=== PATIENT | female | born 1990 | race African-American/Black ===

== ENCOUNTER 2019-10-09 19:34 | Emergency (ER) | payer MEDICAID ==
--- NOTE | 2019-10-09 20:05 | EDM.PDOC ---
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 Patient states that she recently had a positive home test. She believes her last menstrual period was approximately 07/22/19. She states when she gets her period she gets a cramping pain in her right lower abdomen and left upper abdomen. She states she had this pain in August and thought she was getting her period but only had some light spotting on September 01. She states that she developed pain again today in the same area. She denies vaginal bleeding or discharge, dysuria, hematuria, fevers, chills, nausea, vomiting, diarrhea. Review of systems: As per history of present illness and below otherwise all systems reviewed and negative. Past medical history: As per history of present illness and as reviewed below otherwise noncontributory. Surgical history: As per history of present illness and as reviewed below otherwise noncontributory. Social history: No reported history of drug or alcohol abuse. Family history: As per history of present illness and as reviewed below otherwise noncontributory. Physical exam: General: Patient sitting comfortably in no acute distress and nontoxic appearing HEENT: Atraumatic, normocephalic, pupils reactive, negative for conjunctival pallor or scleral icterus, mucous membranes moist, throat clear, neck supple, nontender, trachea midline. No meningeal signs. Lungs: Clear to auscultation, breath sounds equal bilaterally, chest nontender. Heart: S1S2, regular, negative for clicks, rubs, or overt murmur. Abdomen: No point tenderness on examination. Soft, nondistended. Negative for masses or hepatosplenomegaly. Negative for costovertebral tenderness. No rigidity, rebound, guarding. Pelvis: Stable nontender. Genitourinary: Deferred. Rectal: Deferred. Extremities: Atraumatic, negative for cords or calf pain. Neurovascular unremarkable. Neuro: Awake, alert, oriented. Cranial nerves II through XII unremarkable. Cerebellum unremarkable. Motor and sensory unremarkable throughout. Exam nonfocal. Notes: Diagnostics: UA, urine hcg, OB US Therapeutics: [] Prescriptions: Impression: [] Plan: Pelvic rest as instructed Follow up with film loader, please call number provided to schedule an appointment Return to ED as needed as discussed Definitive disposition and diagnosis as appropriate pending reevaluation and review of above. Left Upper Abdomen Pain Score (Numeric/FACES): 4 - Related Data Allergies Allergy/AdvReac Type Severity Reaction Status Date / Time No Known Allergies Allergy Verified 10/09/19 19:54 Home Meds: Home Meds . [No Known Home Meds] 10/09/19 [History] Past Medical History - Past Health History Medical/Surgical History: Denies Medical/Surgical History - Infectious Disease History Infectious Disease History: Reports: Chicken Pox Social & Family History - Family History Family Medical History: Noncontributory - Tobacco Use Smoking Status *Q: Never Smoker Second Hand Smoke Exposure: No - Caffeine Use Caffeine Use: Reports: None - Recreational Drug Use Recreational Drug Use: No ED ROS GENERAL - Review of Systems Review Of Systems: Comprehensive ROS is negative, except as noted in HPI. ED EXAM, GI/ABD - Physical Exam Exam: See Below (see dictation) Course - Vital Signs Last Recorded V/S: Last Vital Signs Temp 98.9 F 10/09/19 19:55 Pulse 81 10/09/19 21:35 Resp 16 10/09/19 21:35 BP 122/80 10/09/19 21:35 Pulse Ox 100 10/09/19 21:35 - Orders/Labs/Meds Labs: Laboratory Tests 10/09/19 10/09/19 Range/Units 20:02 20:02 Urine Color YELLOW Urine Appearance CLEAR Urine pH 6.0 (5.0-8.0) Ur Specific [place] >= 1.030 (1.001-1.035) Urine Protein NEGATIVE (NEGATIVE) mg/dL Urine Glucose (UA) NEGATIVE (NEGATIVE) mg/dL Urine Ketones NEGATIVE (NEGATIVE) mg/dL Urine Occult Blood NEGATIVE (NEGATIVE) Urine Nitrite NEGATIVE (NEGATIVE) Urine Bilirubin NEGATIVE (NEGATIVE) Urine Urobilinogen 0.2 (<2.0) EU/dL Ur Leukocyte Esterase NEGATIVE (NEGATIVE) Urine HCG, Qual POSITIVE (NEGATIVE) Departure - Departure Time of Disposition: 21:23 Disposition: Home, Self-Care 01 Condition: Good Clinical Impression: Abdominal pain in - Discharge Information Instructions: Abdominal Pain During , [id number] Referrals: PCP,Not In Area [Primary Care Provider] - Forms: ED Department Discharge Additional Instructions: The following information is given to patients seen in the emergency department who are being discharged to home. This information is to outline your options for follow-up care. We provide all patients seen in our emergency department with a follow-up referral. The need for follow-up, as well as the timing and circumstances, are variable depending upon the specifics of your emergency department visit. If you don't have a primary care physician on staff, we will provide you with a referral. We always advise you to contact your personal physician following an emergency department visit to inform them of the circumstance of the visit and for follow-up with them and/or the need for any referrals to a consulting specialist. The emergency department will also refer you to a specialist when appropriate. This referral assures that you have the opportunity for follow-up care with a specialist. All of these measure are taken in an effort to provide you with optimal care, which includes your follow-up. Under all circumstances we always encourage you to contact your private physician who remains a resource for coordinating your care. When calling for follow-up care, please make the office aware that this follow-up is from your recent emergency room visit. If for any reason you are refused follow-up, please contact the [facility] Emergency Department at and asked to speak to the emergency department charge nurse. [facility] [address] [place] [id number] [facility] [address] [place] [id number] Pelvic rest as instructed Follow up with film loader, please call number provided to schedule an appointment Return to ED as needed as discussed Sepsis Event Note - Evaluation Sepsis Screening Result: No Definite Risk - Focused Exam Date Exam was Performed: 10/13/19 Time Exam was Performed: 20:50
--- NOTE | 2019-10-09 21:18 | US ---
INDICATION: abdominal pain, spotting in August OBSTETRICAL ULTRASOUND Technique: Transvaginal scanning of the pelvis was performed. Findings: The uterus contains a gestational sac. The gestational sac contains a yolk sac and an embryonic pole which exhibits cardiac activity with a heart rate of 158 BPM. The crown-rump length corresponds to an estimated menstrual age of 11 weeks 3 days and an [place] of 04/26/2020. The ovaries appear within normal limits bilaterally and both show Doppler flow. No significant free pelvic fluid is identified. IMPRESSION: Live early intrauterine with estimated menstrual age of 11 weeks 3 days and [place] of 04/26/2020. SUMIT CORDOVA MD [employer] [facility] Dictated by Fei Cordova MD @ 10/09/2019 9:16:27 PM Dictated by: Fei Cordova MD @ 10/09/2019 21:17:18 (Electronically Signed)
== END 2019-10-09 21:38 | disposition home or self-care (01) ==
LOC: MW.ED 19:34
DX: O99.89 Other specified diseases and conditions complicating pregnancy, childbirth and the puerperium (principal); R10.12 Left upper quadrant pain; R10.31 Right lower quadrant pain
CPT/HCPCS: 76801; 76801-26; 81003; 81025; 99282; 99284-25

== ENCOUNTER 2020-04-26 07:12 | Inpatient (IN) | payer MEDICAID ==
[2020-04-26] MEDS ORDERED: Methylergonovine 0.2 MG/1 ML Amp IM PRN (09:13)
[2020-04-26] MEDS ORDERED: Sodium Chloride 0.9% 2.5 ML Syringe FLUSH PRN (09:13)
[2020-04-26] MEDS ORDERED: Nalbuphine 10 MG/1 ML Vial IVPUSH PRN (09:13)
[2020-04-26] MEDS ORDERED: Lidocaine 1% 50 ML MDV INJECT PRN (09:13)
[2020-04-26] MEDS ORDERED: Sodium Chloride 0.9% 10 ML Syringe FLUSH PRN (09:13)
[2020-04-26] MEDS ORDERED: Water For Irrigation,Sterile 1,000 ML Container IRR PRN (09:13)
[2020-04-26] MEDS ORDERED: Carboprost Tromethamine 250 MCG/1 ML Amp IM PRN (09:13)
[2020-04-26] MEDS ORDERED: Sodium Chloride 0.9% 10 ML SDV IV PRN (09:13)
[2020-04-26] MEDS ORDERED: Tranexamic Acid 1,000 MG in Sodium Chloride 0.9% 100 ML IV PRN (09:13)
[2020-04-26] MEDS ORDERED: Misoprostol 200 MCG Tab PO PRN (09:13)
[2020-04-26] MEDS ORDERED: Oxytocin/0.9 % Sodium Chloride 30 UNIT/500 ML BAG IV SCH ×2 (09:15→19:45)
[2020-04-26] MEDS: Lactated Ringers 1,000 ML IV SCH ×4 (09:53→16:37)
[2020-04-26] MEDS: Butorphanol 1 MG/ML SDV IVPUSH PRN ×3 (09:53→15:28)
--- NOTE | 2020-04-26 10:55 | PCM.LDHP ---
L&D History of Present Illness - General Date of Service: 04/26/20 Admit Problem/Dx: Patient Status Order with Admit Dx/Problem 04/26/20 07:35 Patient Status [ADT] Routine 04/26/20 09:13 Patient Status [ADT] Routine Admission Diagnosis/Problem Admission Diagnosis/Problem 04/26/20 10:46 Flakita is a 30 yo at 39.6 weeks gestation ([place] 04/27/2020) that presents today for onset of contractions since 629 with subsequent clear SROM at 829 confirmed with [employer]. O pos, RI, GBS neg, COVID neg. Patient reports 9 intermittent low abdominal and thigh pain with contractions, breathing through, coping well. Patient denies vaginal bleeding, reports positive movement. Patient denies any other problems or concerns at this time. 04/26/20 10:50 04/26/20 10:50 Source of Information: Patient History Limitations: Reports: No Limitations - History of Present Illness Pain Score: 10 - Related Data Allergies/Adverse Reactions: Allergies Allergy/AdvReac Type Severity Reaction Status Date / Time No Known Allergies Allergy Verified 10/09/19 19:54 Home Medications: Home Meds . [No Known Home Meds] 10/09/19 [History] Past Medical History - Past Health History Medical/Surgical History: Denies Medical/Surgical History HEENT History: Reports: None Cardiovascular History: Reports: None Respiratory History: Reports: None Gastrointestinal History: Reports: None Genitourinary History: Reports: None SPARE PERSON History: Reports: , Spontaneous : 2 Para: 0 LMP (Approximate): Musculoskeletal History: Reports: None Neurological History: Reports: Migraines Psychiatric History: Reports: Anxiety, Depression Endocrine/Metabolic History: Reports: None Hematologic History: Reports: None Immunologic History: Reports: None Oncologic (Cancer) History: Reports: None Dermatologic History: Reports: None - Infectious Disease History Infectious Disease History: Reports: Chicken Pox - Past Surgical History HEENT Surgical History: Reports: None GI Surgical History: Reports: None Female Surgical History: Reports: None Social & Family History - Family History Family Medical History: Noncontributory HEENT: Reports: None Cardiac: Reports: High Cholesterol, Hypertension Respiratory: Reports: Asthma GI: Reports: None : Reports: None OBGYN: Reports: Fibroids Musculoskeletal: Reports: None Neurological: Reports: None Psychiatric: Reports: None Endocrine/Metabolic: Reports: Diabetes, Type I Hematologic: Reports: None Immunologic: Reports: None Dermatologic: Reports: None Oncologic: Reports: None - Tobacco Use Smoking Status *Q: Former Smoker Years of Tobacco use: 9 Used Tobacco, but Quit: Yes Month/Year Tobacco Last Used: 03/2019 Second Hand Smoke Exposure: No - Caffeine Use Caffeine Use: Reports: Soda - Recreational Drug Use Recreational Drug Use: No H&P Review of Systems - Review of Systems: Review Of Systems: Comprehensive ROS is negative, except as noted in HPI. General: Reports: No Symptoms HEENT: Reports: No Symptoms Pulmonary: Reports: No Symptoms Cardiovascular: Reports: No Symptoms Gastrointestinal: Reports: No Symptoms Genitourinary: Reports: No Symptoms Musculoskeletal: Reports: No Symptoms Skin: Reports: No Symptoms Psychiatric: Reports: No Symptoms Neurological: Reports: No Symptoms Hematologic/Lymphatic: Reports: No Symptoms Immunologic: Reports: No Symptoms L&D Exam - Exam Exam: See Below - Vital Signs Vital Signs: T 98.2, BP 134/85 (96), HR 84, RR 18 Weight: 180 lb - OB Specific Fundal Height In cm: 39 Contraction Duration (sec): 50-80 Contraction Frequency (min): 2-4 Contraction Intensity: Moderate Movement: Active Heart Tones: Present Heart Tones per Min: 120 Heart Rate (FHR) Variability: Moderate (6-25 bmp) Presentation: Vertex - Cisse Score Cisse Score Cervix Position: Midposition Cisse Score Consistency: Soft Cisse Score Effacement: 51-70% Cisse Score Dilation: 1-2 cm Cisse Score 's Station: -3 Cisse Score Total: 6 - Exam General: Alert, Oriented HEENT: Conjunctiva Clear, EACs Clear, Hearing Intact, Mucosa Moist & [place], PERRLA Neck: Supple, Trachea Midline Lungs: Clear to Auscultation, Normal Respiratory Effort Cardiovascular: Regular Rate, Regular Rhythm GI/Abdominal Exam: Normal Bowel Sounds, Soft, Non-Tender, No Organomegaly, No Distention Rectal Exam: Normal Exam, Normal Rectal Tone Genitourinary: Normal external exam, Normal bimanual exam, Enlarged uterus (Gravid uterus), Vaginal discharge (SROM, clear) Back Exam: Normal Inspection, Full Range of Motion Extremities: Normal Inspection, Normal Range of Motion, Non-Tender, No Pedal Edema, Normal Capillary Refill Skin: Warm, Dry, Intact Neurological: Cranial Nerves Intact, Reflexes Equal Bilateral Psychiatric: Normal Affect, Normal Mood, Other (Drowsy, Stadol administered) - Patient Data Lab Results Last 24 hrs: Laboratory Results - last 24 hr 04/26/20 04/26/20 04/26/20 Range/Units 08:35 09:40 09:40 WBC 7.00 (4.0-11.0) K/uL RBC 3.92 L (4.30-5.90) M/uL Hgb 9.2 L (12.0-16.0) g/dL Hct 30.1 L (36.0-46.0) % MCV 76.8 L (80.0-98.0) fL MCH 23.5 L (27.0-32.0) pg MCHC 30.6 L (31.0-37.0) g/dL RDW Std Deviation 43.8 (28.0-62.0) fl RDW Coeff of Justin 16 H (11.0-15.0) % Plt Count 257 (150-400) K/uL MPV 9.20 (7.40-12.00) fL Nucleated RBC % 0.0 /100WBC Nucleated RBCs # 0 K/uL Membrane Rupture POSITIVE COVID-19 (ALEXANDER) (NEGATIVE) Blood Type O POSITIVE Antibody Screen NEGATIVE 04/26/20 Range/Units 09:45 WBC (4.0-11.0) K/uL RBC (4.30-5.90) M/uL Hgb (12.0-16.0) g/dL Hct (36.0-46.0) % MCV (80.0-98.0) fL MCH (27.0-32.0) pg MCHC (31.0-37.0) g/dL RDW Std Deviation (28.0-62.0) fl RDW Coeff of Justin (11.0-15.0) % Plt Count (150-400) K/uL MPV (7.40-12.00) fL Nucleated RBC % /100WBC Nucleated RBCs # K/uL Membrane Rupture COVID-19 (ALEXANDER) NEGATIVE (NEGATIVE) Blood Type Antibody Screen Result Diagrams: 04/26/20 09:40 - Problem List (1) with 39 completed weeks gestation SNOMED Code(s): 57330816 ICD Code: Z3A.39 - 39 WEEKS GESTATION OF Status: Acute Priority: High Current Visit: Yes (2) Uterine contractions SNOMED Code(s): 787861565 ICD Code: [id number] - Status: Acute Priority: High Current Visit: Yes Problem List Initiated/Reviewed/Updated: Yes Orders Last 24hrs: Active Orders 24 hr Category Date Time Status Patient Status [ADT] Routine ADT 04/26/20 09:13 Active Heart Tones [RC] CONTINUOUS Care 04/26/20 09:13 Active Non Stress Test [RC] PER UNIT ROUTINE Care 04/26/20 07:35 Active May Shower [RC] ASDIRECTED Care 04/26/20 09:13 Active Notify Provider [RC] PRN Care 04/26/20 09:13 Active Up ad Griselda [RC] ASDIRECTED Care 04/26/20 07:35 Active Up ad Griselda [RC] ASDIRECTED Care 04/26/20 09:13 Active Vaginal Exam [RC] Click to Edit Care 04/26/20 07:35 Active Vital Signs [RC] PER UNIT ROUTINE Care 04/26/20 07:35 Active Vital Signs [RC] PER UNIT ROUTINE Care 04/26/20 09:13 Active Regular Diet [DIET] Diet 04/26/20 Breakfast Active RPR (SYPHILIS SERO) W/ RFLX [REF] Routine Lab 04/26/20 09:40 Received Butorphanol [Stadol] Med 04/26/20 09:13 Active 1 mg IVPUSH Q1H PRN Carboprost Tromethamine [Hemabate DS] Med 04/26/20 09:13 Active 250 mcg IM ASDIRECTED PRN Lactated Ringers [Ringers, Lactated] 1,000 ml Med 04/26/20 09:15 Active IV ASDIRECTED Lidocaine 1% [Xylocaine 1%] Med 04/26/20 09:13 Active 50 ml INJECT ONETIME PRN Methylergonovine [Methergine] Med 04/26/20 09:13 Active 0.2 mg IM ASDIRECTED PRN Nalbuphine [Nubain] Med 04/26/20 09:13 Active 10 mg IVPUSH Q1H PRN Oxytocin/0.9 % Sodium Chloride [Oxytocin 30 Unit/500 ML Med 04/26/20 09:15 Active -NS] 30 unit in 500 ml IV TITRATE Sodium Chloride 0.9% [Normal Saline] Med 04/26/20 09:13 Active 10 ml IV ASDIRECTED PRN Sodium Chloride 0.9% [Saline Flush] Med 04/26/20 09:13 Active 10 ml FLUSH ASDIRECTED PRN Sodium Chloride 0.9% [Saline Flush] Med 04/26/20 09:13 Active 2.5 ml FLUSH ASDIRECTED PRN Tranexamic Acid [Cyklokapron] 1,000 mg Med 04/26/20 09:13 Active Sodium Chloride 0.9% [Normal Saline] 100 ml IV ONETIME Water For Irrigation,Sterile [Sterile Water for Med 04/26/20 09:13 Active Irrigation] 1,000 ml IRR ASDIRECTED PRN miSOPROStoL [Cytotec] Med 04/26/20 09:13 Active 200 mcg PO ONETIME PRN Scalp Electrode [WOMSER] Per Unit Routine Oth 04/26/20 09:13 Ordered Peripheral IV Insertion Adult [OM.PC] Routine Oth 04/26/20 09:13 Ordered Resuscitation Status Routine Resus Stat 04/26/20 07:35 Ordered Medication Orders Butorphanol Tartrate (Stadol) 1 mg IVPUSH Q1H PRN PRN Reason: Pain Last Admin: 04/26/20 09:53 Dose: 1 mg Documented by: NADYA Carboprost Tromethamine (Hemabate Ds) 250 mcg IM ASDIRECTED PRN PRN Reason: Post Hemorrhage Lactated Ringer's (Ringers, Lactated) 1,000 mls @ 150 mls/hr IV ASDIRECTED MICHELLE Last Admin: 04/26/20 09:53 Dose: 150 mls/hr Documented by: NADYA Oxytocin/Sodium Chloride (Oxytocin 30 Unit/500 Ml-Ns) 30 unit in 500 mls @ 500 mls/hr IV TITRATE MICHELLE Tranexamic Acid 1,000 mg/ (Sodium Chloride) 110 mls @ 660 mls/hr IV ONETIME PRN PRN Reason: Bleeding Lidocaine HCl (Xylocaine 1%) 50 ml INJECT ONETIME PRN PRN Reason: Laceration repair Methylergonovine Maleate (Methergine) 0.2 mg IM ASDIRECTED PRN PRN Reason: Post Hemorrhage Misoprostol (Cytotec) 200 mcg PO ONETIME PRN PRN Reason: Post Hemorrhage Nalbuphine HCl (Nubain) 10 mg IVPUSH Q1H PRN PRN Reason: Pain (severe 7-10) Sodium Chloride (Saline Flush) 10 ml FLUSH ASDIRECTED PRN PRN Reason: Keep Vein Open Sodium Chloride (Saline Flush) 2.5 ml FLUSH ASDIRECTED PRN PRN Reason: Keep Vein Open Sodium Chloride (Normal Saline) 10 ml IV ASDIRECTED PRN PRN Reason: IV Use Sterile Water (Sterile Water For Irrigation) 1,000 ml IRR ASDIRECTED PRN PRN Reason: delivery Assessment/Plan Comment:: Admit to labor and delivery under observation at 39+6 weeks gestation in anticipation for of term, viable . Hemodynamically stable, afebrile. COVID negative. GBS negative. See new orders. May have epidural for comfort between 5-[address] Caruso notified and agreeable with POC.
[2020-04-26] MEDS ORDERED: Ropivacaine HCl/PF 100 ML ONE (15:21)
[2020-04-26] MEDS ORDERED: fentaNYL 100 MCG/2 ML SDV ONE ×2 (15:21→23:46)
--- NOTE | 2020-04-26 15:45 | PCM.PREANE ---
Preanesthetic Assessment - Anesthesia/Transfusion/Family Hx Anesthesia History: No Prior Anesthesia Family History of Anesthesia Reaction: No Transfusion History: No Prior Transfusion(s) - Physical Assessment NPO Status Date: 04/26/20 NPO Status Time: 09:00 Height: 1.63 m Weight: 81.647 kg ASA Class: 2 - Lab Values: Laboratory Last Values WBC 7.00 K/uL (4.0-11.0) 04/26/20 09:40 RBC 3.92 M/uL (4.30-5.90) L 04/26/20 09:40 Hgb 9.2 g/dL (12.0-16.0) L 04/26/20 09:40 Hct 30.1 % (36.0-46.0) L 04/26/20 09:40 MCV 76.8 fL (80.0-98.0) L 04/26/20 09:40 MCH 23.5 pg (27.0-32.0) L 04/26/20 09:40 MCHC 30.6 g/dL (31.0-37.0) L 04/26/20 09:40 RDW Std Deviation 43.8 fl (28.0-62.0) 04/26/20 09:40 RDW Coeff of Justin 16 % (11.0-15.0) H 04/26/20 09:40 Plt Count 257 K/uL (150-400) 04/26/20 09:40 MPV 9.20 fL (7.40-12.00) 04/26/20 09:40 Nucleated RBC % 0.0 /100WBC 04/26/20 09:40 Nucleated RBCs # 0 K/uL 04/26/20 09:40 Membrane Rupture POSITIVE 04/26/20 08:35 COVID-19 (ALEXANDER) NEGATIVE (NEGATIVE) 04/26/20 09:45 Blood Type O POSITIVE 04/26/20 09:40 Antibody Screen NEGATIVE 04/26/20 09:40 - Allergies Allergies/Adverse Reactions: Allergies Allergy/AdvReac Type Severity Reaction Status Date / Time No Known Allergies Allergy Verified 10/09/19 19:54 - Acknowledgements Anesthesia Type Planned: Epidural Pt an Appropriate Candidate for the Planned Anesthesia: Yes Alternatives and Risks of Anesthesia Discussed w Pt/Guardian: Yes Pt/Guardian Understands and Agrees with Anesthesia Plan: Yes PreAnesthesia Questionnaire - Past Health History Medical/Surgical History: Denies Medical/Surgical History HEENT History: Reports: None Cardiovascular History: Reports: None Respiratory History: Reports: None Gastrointestinal History: Reports: None Genitourinary History: Reports: None 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: , 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 Musculoskeletal History: Reports: None Neurological History: Reports: Migraines Psychiatric History: Reports: Anxiety, Depression Endocrine/Metabolic History: Reports: None Hematologic History: Reports: None Immunologic History: Reports: None Oncologic (Cancer) History: Reports: None Dermatologic History: Reports: None - Infectious Disease History Infectious Disease History: Reports: Chicken Pox - Past Surgical History HEENT Surgical History: Reports: None GI Surgical History: Reports: None Female Surgical History: Reports: None - SUBSTANCE USE Smoking Status *Q: Former Smoker Tobacco Use Within Last Twelve Months: Cigarettes Second Hand Smoke Exposure: No Recreational Drug Use History: No - HOME MEDS Home Medications: Home Meds . [No Known Home Meds] 10/09/19 [History] - CURRENT (IN HOUSE) MEDS Current Meds: Current Medications Butorphanol Tartrate (Stadol) 1 mg IVPUSH Q1H PRN PRN Reason: Pain Last Admin: 04/26/20 11:20 Dose: 1 mg Documented by: Carboprost Tromethamine (Hemabate Ds) 250 mcg IM ASDIRECTED PRN PRN Reason: Post Hemorrhage Lactated Ringer's (Ringers, Lactated) 1,000 mls @ 150 mls/hr IV ASDIRECTED MICHELLE Last Admin: 04/26/20 09:53 Dose: 150 mls/hr Documented by: Oxytocin/Sodium Chloride (Oxytocin 30 Unit/500 Ml-Ns) 30 unit in 500 mls @ 500 mls/hr IV TITRATE MICHELLE Tranexamic Acid 1,000 mg/ (Sodium Chloride) 110 mls @ 660 mls/hr IV ONETIME PRN PRN Reason: Bleeding Lidocaine HCl (Xylocaine 1%) 50 ml INJECT ONETIME PRN PRN Reason: Laceration repair Methylergonovine Maleate (Methergine) 0.2 mg IM ASDIRECTED PRN PRN Reason: Post Hemorrhage Misoprostol (Cytotec) 200 mcg PO ONETIME PRN PRN Reason: Post Hemorrhage Nalbuphine HCl (Nubain) 10 mg IVPUSH Q1H PRN PRN Reason: Pain (severe 7-10) Sodium Chloride (Saline Flush) 10 ml FLUSH ASDIRECTED PRN PRN Reason: Keep Vein Open Sodium Chloride (Saline Flush) 2.5 ml FLUSH ASDIRECTED PRN PRN Reason: Keep Vein Open Sodium Chloride (Normal Saline) 10 ml IV ASDIRECTED PRN PRN Reason: IV Use Sterile Water (Sterile Water For Irrigation) 1,000 ml IRR ASDIRECTED PRN PRN Reason: delivery Discontinued Medications Fentanyl (Sublimaze) Confirm Administered Dose 100 mcg .ROUTE .STK-MED ONE Stop: 04/26/20 15:22 Ropivacaine (Naropin 0.2%) Confirm Administered Dose 100 mls @ as directed .ROUTE .STK-MED ONE Stop: 04/26/20 15:22
--- NOTE | 2020-04-26 15:49 | PCM.PRNOTE ---
- Free Text/Narrative Note: Anes Note Patient requests epidural for L&D. Sitting position, Level L3-L4 midline approach. Sterile technique. Chloraprep scrub to lumbar area. Sterile fenestrated drape applied. Epidural space easily achieved single attempt using WILDER technique. Wilder at 4 cm. Cath threaded 5 cm with ease. Cath secured a t skin at 10 cm using sterile clear adhesive dressing. Test 1540 3 cc 1.5% lido with epi negative. 1545 Load 10 cc 0.2% ropiv with 1 mcg cc fentanyl in slow divided doses. 1550 Pump started with 90 cc same solution. Rate is 8 cc hr with 6 cc q 20 min prn bolus. Richi well. Time with patient [id number] Jb Yanes [employer]
[2020-04-27] MEDS ORDERED: Witch Hazel Medicated Pads 40/Jar TOP PRN (00:20)
[2020-04-27] MEDS ORDERED: Ibuprofen 400 MG Tab PO PRN (00:20)
[2020-04-27] MEDS ORDERED: oxyCODONE 5 MG Tab PO PRN (00:20)
[2020-04-27] MEDS ORDERED: Acetaminophen 500 MG Tab PO PRN (00:20)
[2020-04-27] MEDS ORDERED: Lanolin 100% Cream 7 GM Tube TOP PRN (00:20)
[2020-04-27] MEDS ORDERED: Benzocaine/Menthol 20%-0.5% Spray 78 GM Cannister TOP PRN (00:20)
[2020-04-27] MEDS ORDERED: Bisacodyl 10 MG Supp RECTAL PRN (00:20)
[2020-04-27] MEDS: Ibuprofen 800 MG Tab PO PRN ×3 (00:59→16:55)
--- NOTE | 2020-04-27 07:09 | PCM48HPAN ---
Post Anesthesia Note - EVALUATION WITHIN 48HRS OF ANESTHETIC Vital Signs in Normal Range: Yes Patient Participated in Evaluation: Yes Respiratory Function Stable: Yes Airway Patent: Yes Cardiovascular Function Stable: Yes Hydration Status Stable: Yes Pain Control Satisfactory: Yes Nausea and Vomiting Control Satisfactory: Yes Mental Status Recovered: Yes Vital Signs: Last Vital Signs Temp 36.3 C 04/27/20 06:34 Pulse 82 04/27/20 06:34 Resp 17 04/27/20 06:34 BP 108/58 L 04/27/20 06:34 Pulse Ox 96 04/27/20 06:34
[2020-04-27] MEDS: Ferrous Sulfate 325 MG Tab PO SCH ×2 (08:58→16:55)
[2020-04-27] MEDS ORDERED: Iron Polysaccharides Complex 150 MG Cap PO SCH (09:00)
--- NOTE | 2020-04-27 11:10 | PCM.PNPP ---
- General Info Date of Service: 04/27/20 Functional Status: Reports: Pain Controlled - Review of Systems General: Reports: No Symptoms HEENT: Reports: No Symptoms Pulmonary: Reports: No Symptoms Cardiovascular: Reports: No Symptoms Gastrointestinal: Reports: No Symptoms Genitourinary: Reports: No Symptoms Musculoskeletal: Reports: No Symptoms Skin: Reports: No Symptoms Neurological: Reports: No Symptoms Psychiatric: Reports: No Symptoms - General Info Date of Service: 04/27/20 - Patient Data Vital Signs - Most Recent: Last Vital Signs Temp 36.4 C 04/27/20 07:34 Pulse 79 04/27/20 07:34 Resp 16 04/27/20 07:34 BP 117/59 L 04/27/20 07:34 Pulse Ox 98 04/27/20 07:34 Weight - Most Recent: 81.647 kg Med Orders - Current: Current Medications Acetaminophen (Tylenol Extra Strength) 500 mg PO Q4H PRN PRN Reason: Pain Acetaminophen (Tylenol Extra Strength) 1,000 mg PO Q4H PRN PRN Reason: Pain Benzocaine/Menthol (Dermoplast Pain Relief 20%-0.5% [place]) 78 gm TOP ASDIRECTED PRN PRN Reason: Perineal Comfort Measure Bisacodyl (Dulcolax) 10 mg RECTAL ONETIME PRN PRN Reason: Constipation Docusate Sodium (Colace) 100 mg PO BID PRN PRN Reason: Constipation Emollient Ointment (Lansinoh Hpa) 0 gm TOP ASDIRECTED PRN PRN Reason: Sore Nipples Ferrous Sulfate (Ferrous Sulfate) 325 mg PO BIDMEALS [facility] Last Admin: 04/27/20 08:58 Dose: 325 mg Documented by: Ibuprofen (Motrin) 400 mg PO Q4H PRN PRN Reason: Pain Ibuprofen (Motrin) 800 mg PO Q6H PRN PRN Reason: Pain Last Admin: 04/27/20 08:58 Dose: 800 mg Documented by: Oxycodone HCl (Oxycodone) 5 mg PO Q2H PRN PRN Reason: Pain Witch Eleni (Tucks) 1 pad TOP ASDIRECTED PRN PRN Reason: comfort care Discontinued Medications Butorphanol Tartrate (Stadol) 1 mg IVPUSH Q1H PRN PRN Reason: Pain Stop: 04/27/20 00:18 Last Admin: 04/26/20 15:28 Dose: 1 mg Documented by: Carboprost Tromethamine (Hemabate Ds) 250 mcg IM ASDIRECTED PRN PRN Reason: Post Hemorrhage Fentanyl (Sublimaze) Confirm Administered Dose 100 mcg .ROUTE .[facility] ONE Stop: 04/26/20 15:22 Last Admin: 04/27/20 08:10 Dose: Not Given Documented by: Fentanyl (Sublimaze) Confirm Administered Dose 100 mcg .ROUTE .[email or web address] ONE Stop: 04/26/20 23:47 Last Admin: 04/27/20 08:11 Dose: Not Given Documented by: Lactated Ringer's (Ringers, Lactated) 1,000 mls @ 150 mls/hr IV ASDIRECTED MICHELLE Last Admin: 04/26/20 16:37 Dose: 999 mls/hr Documented by: Oxytocin/Sodium Chloride (Oxytocin 30 Unit/500 Ml-Ns) 30 unit in 500 mls @ 500 mls/hr IV TITRATE MICHELLE Tranexamic Acid 1,000 mg/ (Sodium Chloride) 110 mls @ 660 mls/hr IV ONETIME PRN PRN Reason: Bleeding Ropivacaine (Naropin 0.2%) Confirm Administered Dose 100 mls @ as directed .ROUTE .[email or web address] ONE Stop: 04/26/20 15:22 Last Admin: 04/27/20 08:12 Dose: Not Given Documented by: Oxytocin/Sodium Chloride (Oxytocin 30 Unit/500 Ml-Ns) 30 unit in 500 mls @ 2 mls/hr IV TITRATE MICHELLE; Protocol Last Infusion: 04/27/20 00:00 Dose: 999 munits/min, 999 mls/hr Documented by: Lidocaine HCl (Xylocaine 1%) 50 ml INJECT ONETIME PRN PRN Reason: Laceration repair Methylergonovine Maleate (Methergine) 0.2 mg IM ASDIRECTED PRN PRN Reason: Post Hemorrhage Misoprostol (Cytotec) 200 mcg PO ONETIME PRN PRN Reason: Post Hemorrhage Nalbuphine HCl (Nubain) 10 mg IVPUSH Q1H PRN PRN Reason: Pain (severe 7-10) Polysaccharide Iron Complex (Ferrex 150) 150 mg PO BID MICHELLE Sodium Chloride (Saline Flush) 10 ml FLUSH ASDIRECTED PRN PRN Reason: Keep Vein Open Sodium Chloride (Saline Flush) 2.5 ml FLUSH ASDIRECTED PRN PRN Reason: Keep Vein Open Sodium Chloride (Normal Saline) 10 ml IV ASDIRECTED PRN PRN Reason: IV Use Sterile Water (Sterile Water For Irrigation) 1,000 ml IRR ASDIRECTED PRN PRN Reason: delivery - Infant Interaction Infant Disposition, : [place] in Room with Family Interaction: Holding Infant Feeding: Attempted ; Nursed Fair/Poor Support Person: Significant Other - Recovery Exam Fundal Tone: Firm Fundal Level: At Umbilicus Fundal Placement: Right Lochia Amount: Scant Lochia Color: Brownish Perineum Description: Intact, Minimal Bruising/Swelling Bladder Status: Voiding - Exam General: Alert, Oriented HEENT: Pupils Equal Neck: Supple Lungs: Clear to Auscultation, Normal Respiratory Effort Cardiovascular: Regular Rate, Regular Rhythm GI/Abdominal Exam: Normal Bowel Sounds, Soft, Non-Tender, No Organomegaly, No Distention, No Abnormal Bruit, No Mass, Pelvis Stable Extremities: Normal Inspection, Normal Range of Motion, Non-Tender, No Pedal Edema, Normal Capillary Refill Skin: Warm, Dry, Intact Wound/Incisions: Healing Well Neurological: No New Focal Deficit Psy/Mental Status: Alert, Normal Affect, Normal Mood - Problem List Review Problem List Initiated/Reviewed/Updated: Yes - My Orders Last 24 Hours: My Active Orders 04/27/20 09:00 Ferrous Sulfate 325 mg PO BIDMEALS - Assessment Assessment:: Vaginal delivery doing well she would be discharged home in a.m. - Plan Plan:: Admit to labor and delivery under observation at 39+6 weeks gestation in anticipation for of term, viable . Hemodynamically stable, afebrile. COVID negative. GBS negative. See new orders. May have epidural for comfort between 5-[address] Caruso notified and agreeable with POC.
[2020-04-27] MEDS: Acetaminophen 500 MG Tab PO PRN ×2 (11:55→20:20)
--- NOTE | 2020-04-27 13:02 | OR ---
SURGEON: Sam Caruso MD DATE OF PROCEDURE: 04/27/2020 Ms. Boggs is a 30-year-old patient, primigravida. She is followed in our clinic primarily by our nurse midwifery service. Her GBS status was negative. Her diabetes screen was normal. She had no issue. She is admitted in active labor. At the time of admission, she was 4 cm and with bulging bag of water. She later on progressed to 6 cm. She had an artificial rupture of the membrane with clear fluid and she had epidural anesthesia for labor analgesia. The patient required Pitocin augmentation, and later on, she progressed to complete complete, and she commenced pushing. She pushed to +1 to +2. She started having deep variable deceleration with tachycardia. I was consulted. At the time I arrived to Labor and Delivery, vital signs were stable. heart rate was category 1. However, the patient does have what looks like cord compression. Because of maternal exhaustion and after consulting with the patient, we elected not to do vacuum extraction. The patient was in ROT and after removing the Adam catheter, the Kiwi vacuum extraction was applied and with the patient pushing and slowly rotating the head to an OA position, I was able to accomplish delivering of the head. The rest of the delivery was accomplished by Anna Mae. The placenta delivered spontaneous, complete, and intact. There was no perineal, labial, or vaginal laceration, and there was no need for episiotomy. Estimated blood loss is 350 to 400 mL. heart rate was category 1 through the entire process of labor and delivery. JAVIER / DIPTI /[id number]
[2020-04-27] MEDS: Docusate Sodium 100 MG Cap PO PRN (20:20)
[2020-04-28] MEDS: Docusate Sodium 100 MG Cap PO PRN (08:34)
[2020-04-28] MEDS: Ferrous Sulfate 325 MG Tab PO SCH (08:34)
[2020-04-28] MEDS: Ibuprofen 800 MG Tab PO PRN (08:45)
--- NOTE | 2020-04-28 08:54 | PCM.DCSUM1 ---
Discharge Summary - Hospital Course Free Text/Narrative:: Discharge home with baby. Follow up in the clinic in 6 weeks for routine visit. Diagnosis: Stroke: No Modified Suzanna Scale: No Symptoms at All Modified [place] Scale Score: 0 - Discharge Data Discharge Date: 04/28/20 Discharge Disposition: Home, Self-Care 01 Condition: Good - Referral to Home Health Primary Care Physician: Melody Sanchez CNM, [employer] - Patient Instructions Diet: Regular Diet as Tolerated, Drink 8-10+ Glasses/Day Activity: As Tolerated, No Strenuous Activities, Rest and Relax Today Driving: May Drive Today Showering/Bathing: May Shower Notify Provider of: Fever, Increased Pain, Swelling and Redness, Drainage, Nausea and/or Vomiting - Discharge Plan *PRESCRIPTION DRUG MONITORING PROGRAM REVIEWED*: Not Applicable *COPY OF PRESCRIPTION DRUG MONITORING REPORT IN PATIENT SAMANTHA: Not Applicable Prescriptions/Med Rec: Lanolin [Lansinoh HPA] 1 tube TOP ASDIRECTED PRN #1 tube PRN Reason: Sore Nipples Ibuprofen [Motrin] 800 mg PO Q6H PRN #90 tablet PRN Reason: Pain Home Medications: Home Meds Ibuprofen [Motrin] 800 mg PO Q6H PRN #90 tablet 04/28/20 [Rx] Lanolin [Lansinoh HPA] 1 tube TOP ASDIRECTED PRN #1 tube 04/28/20 [Rx] Oxygen Therapy Mode: Room Air Referrals: [facility] [Outside] Melody Sanchez CNM, [employer] [Primary Care Provider] - 06/08/20 2:00 pm - Discharge Summary/Plan Comment DC Time >30 min.: Yes - General Info Date of Service: 04/28/20 Admission Dx/Problem (Free Text: Patient Status Order with Admit Dx/Problem 04/26/20 07:35 Patient Status [ADT] Routine 04/26/20 09:13 Patient Status [ADT] Routine Admission Diagnosis/Problem Admission Diagnosis/Problem 04/26/20 10:46 Flakita is a 30 yo at 39.6 weeks gestation ([place] 04/27/2020) that presents today for onset of contractions since 0630 with subsequent clear SROM at 0830 confirmed with [employer]. O pos, RI, GBS neg, COVID neg. Patient reports 9/ intermittent low abdominal and thigh pain with contractions, breathing through, coping well. Patient denies vaginal bleeding, reports positive movement. Patient denies any other problems or concerns at this time. 04/26/20 10:50 04/26/20 10:50 Functional Status: Reports: Pain Controlled, Tolerating Diet, Ambulating, Urinating - Review of Systems General: Reports: No Symptoms HEENT: Reports: No Symptoms Pulmonary: Reports: No Symptoms Cardiovascular: Reports: No Symptoms Gastrointestinal: Reports: No Symptoms Genitourinary: Reports: No Symptoms Musculoskeletal: Reports: No Symptoms Skin: Reports: No Symptoms Neurological: Reports: No Symptoms Psychiatric: Reports: No Symptoms - Patient Data Vitals - Most Recent: Last Vital Signs Temp 97.0 F 04/28/20 05:30 Pulse 92 04/28/20 05:30 Resp 16 04/28/20 05:30 BP 117/61 04/28/20 05:30 Pulse Ox 97 04/28/20 05:30 Weight - Most Recent: 180 lb Lab Results - Last 24 hrs: Laboratory Results - last 24 hr 04/28/20 Range/Units 05:37 Hgb 8.6 L (12.0-16.0) g/dL Hct 28.1 L (36.0-46.0) % Med Orders - Current: Current Medications Acetaminophen (Tylenol Extra Strength) 500 mg PO Q4H PRN PRN Reason: Pain Acetaminophen (Tylenol Extra Strength) 1,000 mg PO Q4H PRN PRN Reason: Pain Last Admin: 04/27/20 20:20 Dose: 1,000 mg Documented by: Benzocaine/Menthol (Dermoplast Pain Relief 20%-0.5% [place]) 78 gm TOP ASDIRECTED PRN PRN Reason: Perineal Comfort Measure Bisacodyl (Dulcolax) 10 mg RECTAL ONETIME PRN PRN Reason: Constipation Docusate Sodium (Colace) 100 mg PO BID PRN PRN Reason: Constipation Last Admin: 04/28/20 08:34 Dose: 100 mg Documented by: Emollient Ointment (Lansinoh Hpa) 0 gm TOP ASDIRECTED PRN PRN Reason: Sore Nipples Last Admin: 04/28/20 08:45 Dose: 7 gm Documented by: Ferrous Sulfate (Ferrous Sulfate) 325 mg PO BIDMEALS [facility] Last Admin: 04/28/20 08:34 Dose: 325 mg Documented by: Ibuprofen (Motrin) 400 mg PO Q4H PRN PRN Reason: Pain Ibuprofen (Motrin) 800 mg PO Q6H PRN PRN Reason: Pain Last Admin: 04/28/20 08:45 Dose: 800 mg Documented by: Oxycodone HCl (Oxycodone) 5 mg PO Q2H PRN PRN Reason: Pain Witch Eleni (Tucks) 1 pad TOP ASDIRECTED PRN PRN Reason: comfort care Discontinued Medications Butorphanol Tartrate (Stadol) 1 mg IVPUSH Q1H PRN PRN Reason: Pain Stop: 04/27/20 00:18 Last Admin: 04/26/20 15:28 Dose: 1 mg Documented by: Carboprost Tromethamine (Hemabate Ds) 250 mcg IM ASDIRECTED PRN PRN Reason: Post Hemorrhage Fentanyl (Sublimaze) Confirm Administered Dose 100 mcg .ROUTE .[facility] ONE Stop: 04/26/20 15:22 Last Admin: 04/27/20 08:10 Dose: Not Given Documented by: Fentanyl (Sublimaze) Confirm Administered Dose 100 mcg .ROUTE .[facility] ONE Stop: 04/26/20 23:47 Last Admin: 04/27/20 08:11 Dose: Not Given Documented by: Lactated Ringer's (Ringers, Lactated) 1,000 mls @ 150 mls/hr IV ASDIRECTED MICHELLE Last Admin: 04/26/20 16:37 Dose: 999 mls/hr Documented by: Oxytocin/Sodium Chloride (Oxytocin 30 Unit/500 Ml-Ns) 30 unit in 500 mls @ 500 mls/hr IV TITRATE MICEHLLE Tranexamic Acid 1,000 mg/ (Sodium Chloride) 110 mls @ 660 mls/hr IV ONETIME PRN PRN Reason: Bleeding Ropivacaine (Naropin 0.2%) Confirm Administered Dose 100 mls @ as directed .ROUTE .[facility] ONE Stop: 04/26/20 15:22 Last Admin: 04/27/20 08:12 Dose: Not Given Documented by: Oxytocin/Sodium Chloride (Oxytocin 30 Unit/500 Ml-Ns) 30 unit in 500 mls @ 2 mls/hr IV TITRATE MICHELLE; Protocol Last Infusion: 04/27/20 00:00 Dose: 999 munits/min, 999 mls/hr Documented by: Lidocaine HCl (Xylocaine 1%) 50 ml INJECT ONETIME PRN PRN Reason: Laceration repair Methylergonovine Maleate (Methergine) 0.2 mg IM ASDIRECTED PRN PRN Reason: Post Hemorrhage Misoprostol (Cytotec) 200 mcg PO ONETIME PRN PRN Reason: Post Hemorrhage Nalbuphine HCl (Nubain) 10 mg IVPUSH Q1H PRN PRN Reason: Pain (severe 7-10) Polysaccharide Iron Complex (Ferrex 150) 150 mg PO BID MICHELLE Sodium Chloride (Saline Flush) 10 ml FLUSH ASDIRECTED PRN PRN Reason: Keep Vein Open Sodium Chloride (Saline Flush) 2.5 ml FLUSH ASDIRECTED PRN PRN Reason: Keep Vein Open Sodium Chloride (Normal Saline) 10 ml IV ASDIRECTED PRN PRN Reason: IV Use Sterile Water (Sterile Water For Irrigation) 1,000 ml IRR ASDIRECTED PRN PRN Reason: delivery - Exam General: Reports: Alert, Oriented, Cooperative, No Acute Distress Lungs: Reports: Normal Respiratory Effort Cardiovascular: Reports: Regular Rate, Regular Rhythm GI/Abdominal Exam: Soft, Non-Tender (Female) Exam: Deferred Rectal (Female) Exam: Deferred Back Exam: Reports: Normal Inspection, Full Range of Motion Extremities: Normal Inspection, Normal Range of Motion, Non-Tender, Normal Capillary Refill Wound/Incisions: Reports: Healing Well Neurological: Reports: No New Focal Deficit, Normal Speech, Normal Tone Psy/Mental Status: Reports: Alert, Normal Affect, Normal Mood
--- NOTE | 2020-04-28 09:13 | PCM.PNPP ---
- General Info Date of Service: 04/28/20 Functional Status: Reports: Pain Controlled - Review of Systems General: Reports: No Symptoms HEENT: Reports: No Symptoms Pulmonary: Reports: No Symptoms Cardiovascular: Reports: No Symptoms Gastrointestinal: Reports: No Symptoms Genitourinary: Reports: No Symptoms Musculoskeletal: Reports: No Symptoms Skin: Reports: No Symptoms Neurological: Reports: No Symptoms Psychiatric: Reports: No Symptoms - General Info Date of Service: 04/28/20 - Patient Data Vital Signs - Most Recent: Last Vital Signs Temp 36.1 C 04/28/20 05:30 Pulse 92 04/28/20 05:30 Resp 16 04/28/20 05:30 BP 117/61 04/28/20 05:30 Pulse Ox 97 04/28/20 05:30 Weight - Most Recent: 81.647 kg Lab Results - Last 24 Hours: Laboratory Results - last 24 hr 04/28/20 Range/Units 05:37 Hgb 8.6 L (12.0-16.0) g/dL Hct 28.1 L (36.0-46.0) % Med Orders - Current: Current Medications Acetaminophen (Tylenol Extra Strength) 500 mg PO Q4H PRN PRN Reason: Pain Acetaminophen (Tylenol Extra Strength) 1,000 mg PO Q4H PRN PRN Reason: Pain Last Admin: 04/27/20 20:20 Dose: 1,000 mg Documented by: Benzocaine/Menthol (Dermoplast Pain Relief 20%-0.5% [place]) 78 gm TOP ASDIRECTED PRN PRN Reason: Perineal Comfort Measure Bisacodyl (Dulcolax) 10 mg RECTAL ONETIME PRN PRN Reason: Constipation Docusate Sodium (Colace) 100 mg PO BID PRN PRN Reason: Constipation Last Admin: 04/28/20 08:34 Dose: 100 mg Documented by: Emollient Ointment (Lansinoh Hpa) 0 gm TOP ASDIRECTED PRN PRN Reason: Sore Nipples Last Admin: 04/28/20 08:45 Dose: 7 gm Documented by: Ferrous Sulfate (Ferrous Sulfate) 325 mg PO BIDMEALS MICHELLE Last Admin: 04/28/20 08:34 Dose: 325 mg Documented by: Ibuprofen (Motrin) 400 mg PO Q4H PRN PRN Reason: Pain Ibuprofen (Motrin) 800 mg PO Q6H PRN PRN Reason: Pain Last Admin: 04/28/20 08:45 Dose: 800 mg Documented by: Oxycodone HCl (Oxycodone) 5 mg PO Q2H PRN PRN Reason: Pain Witch Eleni (Tucks) 1 pad TOP ASDIRECTED PRN PRN Reason: comfort care Discontinued Medications Butorphanol Tartrate (Stadol) 1 mg IVPUSH Q1H PRN PRN Reason: Pain Stop: 04/27/20 00:18 Last Admin: 04/26/20 15:28 Dose: 1 mg Documented by: Carboprost Tromethamine (Hemabate Ds) 250 mcg IM ASDIRECTED PRN PRN Reason: Post Hemorrhage Fentanyl (Sublimaze) Confirm Administered Dose 100 mcg .ROUTE .[facility] ONE Stop: 04/26/20 15:22 Last Admin: 04/27/20 08:10 Dose: Not Given Documented by: Fentanyl (Sublimaze) Confirm Administered Dose 100 mcg .ROUTE .[facility] ONE Stop: 04/26/20 23:47 Last Admin: 04/27/20 08:11 Dose: Not Given Documented by: Lactated Ringer's (Ringers, Lactated) 1,000 mls @ 150 mls/hr IV ASDIRECTED MICHELLE Last Admin: 04/26/20 16:37 Dose: 999 mls/hr Documented by: Oxytocin/Sodium Chloride (Oxytocin 30 Unit/500 Ml-Ns) 30 unit in 500 mls @ 500 mls/hr IV TITRATE MICHELLE Tranexamic Acid 1,000 mg/ (Sodium Chloride) 110 mls @ 660 mls/hr IV ONETIME PRN PRN Reason: Bleeding Ropivacaine (Naropin 0.2%) Confirm Administered Dose 100 mls @ as directed .ROUTE .[facility] ONE Stop: 04/26/20 15:22 Last Admin: 04/27/20 08:12 Dose: Not Given Documented by: Oxytocin/Sodium Chloride (Oxytocin 30 Unit/500 Ml-Ns) 30 unit in 500 mls @ 2 mls/hr IV TITRATE MICHELLE; Protocol Last Infusion: 04/27/20 00:00 Dose: 999 munits/min, 999 mls/hr Documented by: Lidocaine HCl (Xylocaine 1%) 50 ml INJECT ONETIME PRN PRN Reason: Laceration repair Methylergonovine Maleate (Methergine) 0.2 mg IM ASDIRECTED PRN PRN Reason: Post Hemorrhage Misoprostol (Cytotec) 200 mcg PO ONETIME PRN PRN Reason: Post Hemorrhage Nalbuphine HCl (Nubain) 10 mg IVPUSH Q1H PRN PRN Reason: Pain (severe 7-10) Polysaccharide Iron Complex (Ferrex 150) 150 mg PO BID MICHELLE Sodium Chloride (Saline Flush) 10 ml FLUSH ASDIRECTED PRN PRN Reason: Keep Vein Open Sodium Chloride (Saline Flush) 2.5 ml FLUSH ASDIRECTED PRN PRN Reason: Keep Vein Open Sodium Chloride (Normal Saline) 10 ml IV ASDIRECTED PRN PRN Reason: IV Use Sterile Water (Sterile Water For Irrigation) 1,000 ml IRR ASDIRECTED PRN PRN Reason: delivery - Interaction Disposition, : [place] in Room with Family Interaction: Holding Feeding: Attempted ; Nursed Fair/Poor Support Person: Significant Other - Recovery Exam Fundal Tone: Firm Fundal Level: At Umbilicus Fundal Placement: Midline Lochia Amount: Scant Lochia Color: Rubra/Red Perineum Description: Intact, Minimal Bruising/Swelling Episiotomy/Laceration: None Bladder Status: Voiding Urinary Elimination: Voided - Exam General: Alert, Oriented HEENT: Pupils Equal Neck: Supple Lungs: Clear to Auscultation, Normal Respiratory Effort Cardiovascular: Regular Rate, Regular Rhythm GI/Abdominal Exam: Normal Bowel Sounds, Soft, Non-Tender, No Organomegaly, No Distention, No Abnormal Bruit, No Mass, Pelvis Stable Extremities: Normal Inspection, Normal Range of Motion, Non-Tender, No Pedal Edema, Normal Capillary Refill Skin: Warm, Dry, Intact Wound/Incisions: Healing Well Neurological: No New Focal Deficit Psy/Mental Status: Alert, Normal Affect, Normal Mood - Problem List Review Problem List Initiated/Reviewed/Updated: Yes - My Orders Last 24 Hours: My Active Orders 04/27/20 09:00 Ferrous Sulfate 325 mg PO BIDMEALS - Assessment Assessment:: Vaginal delivery doing well she would be discharged home in a.m. - Plan Plan:: Admit to labor and delivery under observation at 39+6 weeks gestation in anticipation for of term, viable . Hemodynamically stable, afebrile. COVID negative. GBS negative. See new orders. May have epidural for comfort between 5-[address] Caruso notified and agreeable with POC.
== END 2020-04-28 12:55 | disposition home or self-care (01) | DRG 807 ==
LOC: MW.OBCHECK 07:12 → MW.OB 07:12 → MW.OBCHECK 09:12 → MW.OB 09:13 → OBSVTOIN 04-27 → MW.OB 04-27 02:12
PROVIDERS: ADMIT Advanced Practice Midwife; ATTEND Obstetrics & Gynecology
PROC: 3E0R3BZ Introduction of Anesthetic Agent into Spinal Canal, Percutaneous Approach (ICD-10-PCS; 2020-04-26)
PROC: 00HU33Z Insertion of Infusion Device into Spinal Canal, Percutaneous Approach (ICD-10-PCS; 2020-04-26)
PROC: 10D07Z6 Extraction of Products of Conception, Vacuum, Via Natural or Artificial Opening (ICD-10-PCS; principal; 2020-04-27)
PROC: 10907ZC Drainage of Amniotic Fluid, Therapeutic from Products of Conception, Via Natural or Artificial Opening (ICD-10-PCS; 2020-04-27)
DX: O76 Abnormality in fetal heart rate and rhythm complicating labor and delivery (principal); Z37.0 Single live birth; Z3A.39 39 weeks gestation of pregnancy; Z20.828 Contact with and (suspected) exposure to other viral communicable diseases
CPT/HCPCS: 36415; 51702; 59025; 59409; 84112; 85014; 85018; 85027; 86592; 86850; 86900; 86901; A9270-GY; J0595; J2590; J7120; U0002

== ENCOUNTER 2021-12-08 18:25 | Emergency (ER) | payer MEDICAID ==
[2021-12-08] MEDS ORDERED: Sodium Chloride 0.9% 1,000 ML IV ONE (18:47)
[2021-12-08 20:21] LABS: BLOOD UREA NITROGEN,BUN 14 mg/dL (7.0-18.0); CARBON DIOXIDE,CO2 25.6 mmol/L (21.0-32.0); CHLORIDE,CL 99 mmol/L (98-107); GLUCOSE RANDOM 73 mg/dL (74-106); POTASSIUM,K 4.1 mmol/L (3.5-5.1); SODIUM,NA 135 mmol/L (136-145)
== END 2021-12-08 21:30 | disposition home or self-care (01) ==
LOC: MW.ED 18:25
DX: O99.891 Other specified diseases and conditions complicating pregnancy (principal); R10.2 Pelvic and perineal pain; O99.281 Endocrine, nutritional and metabolic diseases complicating pregnancy, first trimester; E16.2 Hypoglycemia, unspecified; Z3A.01 Less than 8 weeks gestation of pregnancy
CPT/HCPCS: 36415; 80053; 81003; 82947; 84702; 85025; 93005; 99284; J7030; 99283

== ENCOUNTER 2022-02-04 00:36 | Emergency (ER) | payer OTHER ==
[2022-02-04] MEDS ORDERED: Ondansetron 4 MG Tab.DIS PO ONE (01:05)
[2022-02-04] MEDS ORDERED: Acetaminophen/HYDROcodone 325-5 MG Tab PO ONE (01:06)
[2022-02-04 02:16] LABS: BLOOD UREA NITROGEN,BUN 12 mg/dL (7.0-18.0); CARBON DIOXIDE,CO2 24.9 mmol/L (21.0-32.0); CHLORIDE,CL 101 mmol/L (98-107); GLUCOSE RANDOM 86 mg/dL (74-106); POTASSIUM,K 3.8 mmol/L (3.5-5.1); SODIUM,NA 135 mmol/L (136-145)
[2022-02-04 02:18] LABS: ESTIMATED GFR > 60.0 ml/min
[2022-02-04] MEDS ORDERED: Morphine 15 MG Tab PO STA (03:33)
[2022-02-04] MEDS ORDERED: Morphine 2 MG/ML SYRINGE IVPUSH ONE (04:02)
== END 2022-02-04 05:25 | disposition home or self-care (01) ==
LOC: MW.ED 00:36
DX: O99.891 Other specified diseases and conditions complicating pregnancy (principal); R10.31 Right lower quadrant pain; Z3A.15 15 weeks gestation of pregnancy
CPT/HCPCS: 36415; 76700; 76700-26; 76815-26; 76816; 80048; 81001; 81025; 82247; 84075; 84450; 84460; 84702; 85025; 86850; 86900; 86901; 96374; 99284-25; 99291; A9270-GY; J2270

== ENCOUNTER 2022-04-21 15:43 | Emergency (ER) | payer SELFPAY ==
[2022-04-21] MEDS ORDERED: Acetaminophen 325 MG Tab PO ONE (20:37)
[2022-04-21] MEDS ORDERED: oxyCODONE 5 MG Tab PO ONE (20:38)
== END 2022-04-21 21:48 | disposition home or self-care (01) ==
LOC: MW.ED 15:43
DX: S52.502A Unspecified fracture of the lower end of left radius, initial encounter for closed fracture (principal); S52.602A Unspecified fracture of lower end of left ulna, initial encounter for closed fracture; W18.09XA Striking against other object with subsequent fall, initial encounter
CPT/HCPCS: 73090; 99283; A9270; 29125

== ENCOUNTER 2022-07-25 05:43 | Inpatient (IN) | payer OTHER ==
[2022-07-25] MEDS ORDERED: Lidocaine 1% 50 ML MDV INJECT PRN (06:12)
[2022-07-25] MEDS ORDERED: Carboprost Tromethamine 250 MCG/1 ML Amp IM PRN (06:12)
[2022-07-25] MEDS ORDERED: Butorphanol 1 MG/ML SDV IVPUSH PRN (06:12)
[2022-07-25] MEDS ORDERED: Sodium Chloride 0.9% 20 ML SDV IV PRN (06:12)
[2022-07-25] MEDS ORDERED: Sodium Chloride 0.9% 2.5 ML Syringe FLUSH PRN (06:12)
[2022-07-25] MEDS ORDERED: Water For Irrigation,Sterile 1,000 ML Container IRR PRN (06:12)
[2022-07-25] MEDS ORDERED: Misoprostol 200 MCG Tab PO PRN (06:12)
[2022-07-25] MEDS ORDERED: Sodium Chloride 0.9% 10 ML Syringe FLUSH PRN (06:12)
[2022-07-25] MEDS ORDERED: Ondansetron 4 MG/2 ML SDV IVPUSH PRN (06:12)
[2022-07-25] MEDS ORDERED: Tranexamic Acid 1,000 MG in Sodium Chloride 0.9% 100 ML IV PRN (06:12)
[2022-07-25] MEDS ORDERED: Methylergonovine 0.2 MG/1 ML Amp IM PRN (06:12)
[2022-07-25] MEDS ORDERED: Oxytocin/0.9 % Sodium Chloride 30 UNIT/500 ML BAG IV SCH (06:15)
[2022-07-25] MEDS ORDERED: Ibuprofen 400 MG Tab PO PRN (07:13)
[2022-07-25] MEDS ORDERED: Acetaminophen 500 MG Tab PO PRN (07:13)
[2022-07-25] MEDS ORDERED: Docusate Sodium 100 MG Cap PO PRN (07:13)
[2022-07-25] MEDS ORDERED: Witch Hazel Medicated Pads 40/Jar TOP PRN (07:13)
[2022-07-25] MEDS ORDERED: Bisacodyl 10 MG Supp RECTAL PRN (07:13)
[2022-07-25] MEDS ORDERED: Benzocaine/Menthol 20%-0.5% Spray 78 GM Cannister TOP PRN (07:13)
[2022-07-25] MEDS ORDERED: Lanolin 100% Cream 7 GM Tube TOP PRN (07:13)
[2022-07-25] MEDS ORDERED: oxyCODONE 5 MG Tab PO PRN (07:13)
[2022-07-25] MEDS: Lactated Ringers 1,000 ML IV SCH ×2 (07:15→07:54)
[2022-07-25] MEDS ORDERED: Ropivacaine/PF 400 MG/200 ML PCA ONE (07:32)
[2022-07-25] MEDS ORDERED: ePHEDrine 50 MG/ML SDV IVPUSH PRN (07:51)
[2022-07-25] MEDS ORDERED: Phenylephrine 1% 10 MG/ML SDV IVPUSH PRN (07:51)
[2022-07-25] MEDS ORDERED: Ropivacaine HCl/PF 400 MG in Premix Bag 1 BAG EPIDUR SCH (08:00)
[2022-07-25] MEDS ORDERED: Dexmedetomidine 200 MCG/2 ML SDV ONE (08:40)
[2022-07-25] MEDS: Ibuprofen 800 MG Tab PO PRN ×2 (13:25→23:21)
[2022-07-25] MEDS: Acetaminophen 500 MG Tab PO PRN (18:23)
[2022-07-26] MEDS: Acetaminophen 500 MG Tab PO PRN (04:22)
[2022-07-26] MEDS: Ibuprofen 800 MG Tab PO PRN (10:30)
== END 2022-07-26 19:46 | disposition home or self-care (01) | DRG 807 ==
LOC: MW.OBCHECK 05:43 → MW.OB 05:44 → MW.OBCHECK 05:51 → MW.OB 05:52 → UNDOADMOB 05:52 → MW.OB 06:12 → OBSVTOIN 11:26 → MW.OB 16:05
PROVIDERS: ADMIT Obstetrics & Gynecology; ATTEND Obstetrics & Gynecology
PROC: 10D07Z6 Extraction of Products of Conception, Vacuum, Via Natural or Artificial Opening (ICD-10-PCS; principal; 2022-07-25)
PROC: 3E0S3BZ Introduction of Anesthetic Agent into Epidural Space, Percutaneous Approach (ICD-10-PCS; 2022-07-25)
PROC: 00HU33Z Insertion of Infusion Device into Spinal Canal, Percutaneous Approach (ICD-10-PCS; 2022-07-25)
DX: O77.0 Labor and delivery complicated by meconium in amniotic fluid (principal); Z37.0 Single live birth; Z3A.39 39 weeks gestation of pregnancy; O76 Abnormality in fetal heart rate and rhythm complicating labor and delivery; Z20.822 Contact with and (suspected) exposure to COVID-19
CPT/HCPCS: 01967; 36415; 51702; 59025; 59409; 85014; 85018; 85027; 86592; 86850; 86900; 86901; A9270-GY; J2590; J2795; J7120; U0002

== ENCOUNTER 2022-12-13 21:10 | Emergency (ER) | payer OTHER | END 2022-12-14 01:00 | disposition home or self-care (01) | LOC: MW.ED 21:10 | DX: K52.9 Noninfective gastroenteritis and colitis, unspecified (principal) | CPT/HCPCS: 81025; 99282; 99284 ==